=== PATIENT | male | born 2000 | race Two or more races ===

== ENCOUNTER 2021-07-19 13:24 | Emergency (ER) | payer OTHER ==
[2021-07-19 13:38] VITALS: BP 150/83
[2021-07-19] MEDS ORDERED: BUFFERED LIDOCAINE 10 ML SYRINGE IU ONE (13:40)
--- NOTE | 2021-07-19 14:19 | ED Physician Documentation ---
PD HPI SKIN - Stated complaint Stated Complaint: HEAD LACERATION - Chief complaint Chief Complaint: Laceration - History obtained from History obtained from: Patient - Additional information Additional information: Patient comes emergency department chief complaint of scalp laceration after hitting his head on the edge of a waiting at his job in the [employer]. No other injuries. He did not lose consciousness. Injury happened about an hour ago. No other complaints at this time. Review of Systems Ten Systems: 10 systems reviewed and negative Constitutional: reports: Reviewed and negative Eyes: reports: Reviewed and negative Ears: reports: Reviewed and negative Nose: reports: Reviewed and negative Throat: reports: Reviewed and negative Cardiac: reports: Reviewed and negative Respiratory: reports: Reviewed and negative GI: reports: Reviewed and negative : reports: Reviewed and negative Skin: reports: Laceration (s) Musculoskeletal: reports: Reviewed and negative Neurologic: reports: Head injury Psychiatric: reports: Reviewed and negative Endocrine: reports: Reviewed and negative Immunocompromised: reports: Reviewed and negative PD PAST MEDICAL HISTORY - Present Medications Home Medications: Ambulatory Orders Medication Instructions Recorded Confirmed No Known Home Medications 07/19/21 07/19/21 - Allergies Allergies/Adverse Reactions: Allergies Allergy/AdvReac Type Severity Reaction Status Date / Time ibuprofen AdvReac Edema Verified 07/19/21 13:35 PD ED PE NORMAL - Vitals Vital signs reviewed: Yes - General General: Alert and oriented X 3, No acute distress, Well developed/nourished - HEENT HEENT: PERRL, EOMI, Moist mucous membranes, Other (3.5 cm linear laceration at apex of scalp, slightly to the right. Bleeding controlled. No bony deformity.) - Neck Neck: Supple, no meningeal sign - Cardiac Cardiac: RRR, No murmur, Strong equal pulses - Respiratory Respiratory: No respiratory distress, Clear bilaterally - Abdomen Abdomen: Soft, Non tender, Non distended - Derm Derm: Warm and dry - Extremities Extremities: No deformity, No edema - Neuro Neuro: Alert and oriented X 3, bladder tier 2-12 intact, Normal speech - Psych Psych: Normal mood, Normal affect Results - Vitals Vitals: Oxygen O2 Source Room air Procedures - Laceration (location) Scalp Length in cm: 3.5 Wound type: Linear Neurovascular status: Sensory intact, Vascular intact Wound preparation: Hibiclens, Irrigated copiously NS, Wound explored, To the base Skin layer closure: Prabhu (10) Other: Patient tolerated well, No complications, Neurovascular intact, Dressing applied, Tetanus UTD PD MEDICAL DECISION MAKING - ED course Complexity details: considered differential, d/w patient ED course: Wound repaired as above. The patient was given instructions regarding wound care at home and we have discussed that prabhu should be removed by a medical professional in 10 days. We have discussed the usual indications for return. Departure - Departure Disposition: 01 Home, Self Care Clinical Impression: Laceration Condition: Stable Instructions: ED Laceration Scalp Stitch Or Stap Comments: In general, you should keep the wound dry, but you may let water and soap run over the wound. However, please do not rub, scrub, or immerse the wound as long as the prabhu are in. This is to avoid developing infection. You may apply a an antibiotic ointment such as bacitracin or Neosporin to the area. You [place] 10 [place]hu [place]. In the meantime, if you notice any redness or swelling spreading progressively away from the wound, or if the wound becomes "mushy" and drains what appears to be pus, you should have it looked at again. Please do not wear any hats, helmets, or other head gear until the prabhu are removed. Forms: Activity restrictions Discharge Date/Time: 07/19/21 14:40
== END 2021-07-19 14:40 | disposition home or self-care (01) ==
LOC: ED 13:24
DX: S01.01XA Laceration without foreign body of scalp, initial encounter (principal); W22.8XXA Striking against or struck by other objects, initial encounter
CPT/HCPCS: 12002; 99281

== ENCOUNTER 2023-09-22 09:06 | Outpatient (CLI) | payer OTHER ==
[~2023-09-22 09:06] MED LIST: GADOTERATE MEGLUMINE 10 MMOL/20 ML VIAL ONE
--- NOTE | 2023-09-22 12:59 | MRI Report ---
PROCEDURE: Brain W/WO INDICATIONS: TINNITUS CONTRAST: clariscan 17.4ml TECHNIQUE: Noncontrast axial T1 spin echo, axial T2 fast spin echo, sagittal and axial FLAIR, coronal T2 fast sp in echo, axial gradient echo, axial diffusion and ADC through the brain. After the administration of contrast, axial and coronal T1 spin echo with fat saturation through the brain. COMPARISON: None. FINDINGS: Image quality: Excellent. CSF spaces: Basal cisterns are patent. No extra-axial fluid collections. Ventricles are normal in size and shape. Brain: No midline shift. No intracranial bleeds or masses. No abnormal intracranial enhancement. There is cerebral volume loss for age. There is periventricular white matter chronic small vessel is chemic change. The brainstem appears normal. Diffusion-weighted images demonstrate no acute ischemi c insults. No chronic ischemic insults. Normal intravascular flow voids are present. In this patient with this given history, scrutiny is given to the cerebellopontine angle cisterns and to the internal auditory canals. To the limits of this standard protocol study, no masses or abnorma l enhancement can be seen within these regions. Skull and face: Calvarial marrow is normal in signal. Orbits appear normal. Sinuses: Sinuses and mastoids appear clear. IMPRESSION: No imaging explanation is found for the patient's presenting symptoms. Reviewed by: Saurabh Chacon MD on 09/22/2023 11:58 AM [facility] Approved by: Saurabh Chacon MD on 09/22/2023 11:58 AM [facility] Station ID: [id number]
[2023-09-22] MEDS: GADOTERATE MEGLUMINE 10 MMOL/20 ML VIAL IVP ONE (16:52)
== END 2023-09-22 09:07 | disposition home or self-care (01) ==
LOC: DI 09:06
PROVIDERS: ATTEND Student in an Organized Health Care Education/Training Program
DX: H93.13 Tinnitus, bilateral (principal)
CPT/HCPCS: 70553; A9575